=== PATIENT | female | born 2000 | race Caucasian/White ===

== ENCOUNTER 2020-08-23 03:34 | Emergency (ER) | payer OTHER ==
[~2020-08-23] VITALS: Ht 170.2 cm; Wt 73.0 kg
[2020-08-23 05:40] VITALS: BP 120/82
== END 2020-08-23 05:49 | disposition home or self-care (01) ==
LOC: ER 03:34
DX: J02.9 Acute pharyngitis, unspecified (principal); R03.0 Elevated blood-pressure reading, without diagnosis of hypertension
CPT/HCPCS: 99283